=== PATIENT | male | born 1975 | race Caucasian/White ===

== ENCOUNTER → 2017-01-11 | Outpatient (CLI) | payer OTHER ==
[~2017-01-11] MED LIST: CLR10 PO; FLNIN NAE; SALI0.6517; SYN200 PO
--- NOTE | 2017-01-11 10:45 | DIAGNOSTIC IMAGING REPORT ---
ULTRASOUND TESTES AND SCROTUM CLINICAL HISTORY: Testicular pain. COMPARISON STUDY: No priors. TECHNIQUE: Real-time, grayscale, and color Doppler sonography of the testes and scrotum is performed. Images are reviewed in the transverse and longitudinal planes. FINDINGS: The testes are normal in size and homogeneous in echotexture. The right testis measures 3.8 x 1.7 x 2.4 cm and the left testis measures 3.8 x 1.7 x 2.5 cm. No intratesticular mass is seen. Testicular blood flow is normal and symmetric. Normal Doppler waveforms are identified in both testes. The epididymal heads are normal in appearance. The right epididymal head measures 1.0 cm in length and the left epididymal head measures 1.1 cm in length. There is a 7 mm right epididymal head cyst. No varicocele or hydrocele is seen. IMPRESSION: Unremarkable sonographic assessment of the testes and scrotum. Electronically signed by: Roque Scott M.D. 01/11/2017 10:44 AM Dictated Date/Time: 01/11/2017 10:40 AM
== END | disposition home or self-care (01) ==
LOC: C.ULTR 10:11
PROVIDERS: ATTEND Family Medicine
DX: N50.819 Testicular pain, unspecified (principal)

== ENCOUNTER → 2017-03-05 | Outpatient (CLI) | payer OTHER ==
--- NOTE | 2017-03-05 09:41 | DIAGNOSTIC IMAGING REPORT ---
CHEST 2 VIEWS ROUTINE CLINICAL HISTORY: COUGH dyspnea COMPARISON STUDY: No previous studies for comparison. FINDINGS: Focal infiltrate right base. Lungs otherwise are clear. Diaphragms smooth. Calcifications are sharp. IMPRESSION: Focal parenchymal infiltrate right lung base. The above report was generated using voice recognition software. It may contain grammatical, syntax or spelling errors. Electronically signed by: Gil Flannery M.D. 03/05/2017 9:39 AM Dictated Date/Time: 03/05/2017 9:39 AM
== END | disposition home or self-care (01) ==
LOC: C.RAD1850 09:26
PROVIDERS: ATTEND Family Medicine Hospice and Palliative Medicine
DX: R05 Cough (principal); R91.8 Other nonspecific abnormal finding of lung field